=== PATIENT | male | born 1935 | race Caucasian/White ===

== ENCOUNTER 2017-01-22 09:11 | Emergency (ER) | payer MEDICARE ==
[~2017-01-22 09:11] MED LIST: ATIVAN-DPS0.5 MG PO; CARVEDILOL25 MG PO; CLARITIN DPS10 MG PO; ECOTRIN-DPS325 MG PO; FLOMAX0.4 MG PO; KEPPRA DPS250 MG PO; KLOR-CON M2020 ME1 PO; LASIX DPS40 MG PO; LEVEMIR100 UNIT/1 SQ; LIPITOR20 MG PO; MAALOX DPS30 ML PO; MULTIVITAMINS1 EAC8 PO; NITROSTAT0.4 MG SL; PLAVIX75 MG PO; SURFAK240 MG PO; SYNTHROID112 MCG PO; TEARS NATURAL D15 ML OU; TYLENOL325 MG PO; VANTIN DPS200 MG PO; ZESTRIL DPS10 MG PO
--- NOTE | 2017-01-30 18:05 | ER ---
ADMIT: 01/22/2017 RM/LOC: [facility] MR#: [id number] [address] [id number] [place] [address] Emergency Room Report SEX: M AGE: 81 : 1935 DATE: 01/22/2017 CHIEF COMPLAINT: Shortness of breath. HISTORY OF PRESENT ILLNESS: A 81-year-old white male, who presents with a day's duration of worsening shortness of breath and wheezing. The patient is a resident at [facility] for underlying vascular dementia. History is primarily gathered through the , however, he is somewhat insightful to his condition. He states over the past days, he had some increasing shortness of breath. Denies any recent illnesses or episodes of aspiration. He states he feels like it is up high in chest and sinuses. does notice that he has some increased ankle edema. Denies any fever, chills, sweating, chest pain, or productive cough. reports he was hospitalized with a similar illness sometime ago, was treated with Lasix and improved. PAST MEDICAL HISTORY: He does have a past medical history for CHF, coronary artery disease status post CABG x4, right carotid endarterectomy, diabetes on insulin, hypertension, CVA, TIA with right-sided deficit. SOCIAL HISTORY: He is a nonsmoker. Denies any drugs or alcohol. COURSE IN THE EMERGENCY DEPARTMENT: GENERAL: The patient was seen and examined. Afebrile and nontoxic in no acute distress. He is hypertensive on admission. HEENT: Eyes are equal and reactive. Pharynx is nonerythematous. NECK: Soft and supple. No carotid bruits. CHEST: Clear to auscultation. No wheezes or rhonchi. No decreased air movement. He speaks in full sentences. He does have an audible wheeze with expiration. HEART: Mildly tachycardic. No rigidity. NO murmurs, gallops, or rubs. ABDOMEN: Soft and nontender. SKIN: Warm and dry. EXTREMITIES: He does have bilateral 1+ edema. He does wear a brace on the right for his deficit. NEURO: He is disoriented. He does have some right-sided weakness secondary to CVA. LABORATORY STUDIES: White count 6.3, hemoglobin 13.8, hematocrit 40.9, and platelets 147. Sodium 138, potassium 4.5, glucose 261, creatinine 1.5, calcium 8.3. Cardiac markers are negative. BNP 1288, this is stable. Chest x-ray shows some mild CHF and edema. He was given a breathing treatment. It seems like this is helping. I did call Dr. Dequan Bui, made him aware of the patient. He recommended ADMIT: 01/22/2017 RM/LOC: [facility] MR#: [id number] [address] [place] [address] [id number] [place] [address] Emergency Room Report SEX: M AGE: 81 : 1935 increasing Lasix for 2 days. We will follow up next week. IMPRESSION: 1. Shortness of breath. 2. Pulmonary edema with history of congestive heart failure. DISPOSITION: The patient was discharged back to [facility]. Increase Lasix to 80 mg p.o. daily for 2 days. He is to call for an appointment with Dr. Bui early next week. Continue home medication and therapies as before. Return with any worsening signs or symptoms. Questions sought and answered best of my ability and to the patient's satisfaction. Discharged in stable condition. YOVANNY Lucas / Kyle Chow MD / francisco JOB #: [id number] CC: Kyle Chow MD, Attending Physician Dequan Bui MD, Family Physician
== END 2017-01-22 11:15 | disposition home or self-care (01) ==
LOC: ER 09:11
DX: R06.02 Shortness of breath (principal); I11.0 Hypertensive heart disease with heart failure; I50.1 Left ventricular failure, unspecified; I25.10 Atherosclerotic heart disease of native coronary artery without angina pectoris; E11.9 Type 2 diabetes mellitus without complications; E03.9 Hypothyroidism, unspecified; F01.50 Vascular dementia, unspecified severity, without behavioral disturbance, psychotic disturbance, mood disturbance, and anxiety; Z86.73 Personal history of transient ischemic attack (TIA), and cerebral infarction without residual deficits; Z95.1 Presence of aortocoronary bypass graft; Z88.6 Allergy status to analgesic agent; Z88.8 Allergy status to other drugs, medicaments and biological substances; Z79.82 Long term (current) use of aspirin; Z79.4 Long term (current) use of insulin; Z79.01 Long term (current) use of anticoagulants; Z79.899 Other long term (current) drug therapy